=== PATIENT | female | born 1990 | race Caucasian/White ===

== ENCOUNTER → 2017-08-11 12:43 | Outpatient (CLI) | payer SELFPAY ==
[2012-09-07 09:03] VITALS: BMI 31.7
[~2017-08-11 12:43] MED LIST: NORCO 10/325 TA1 TA1 PO
[2017-08-11 13:50] LABS: APPEARANCE HAZY (CLEAR); BILIRUBIN NEGATIVE (NEGATIVE); COLOR RED (YELLOW); GLUCOSE NEGATIVE (NEGATIVE); KETONE NEGATIVE (NEGATIVE); NITRITE NEGATIVE (NEGATIVE); PROTEIN 1+ mg/dL (NEGATIVE); UROBILINOGEN NORMAL (NORMAL)
[2017-08-11 13:52] LABS: BACTERIA MANY /hpf (NONE SEEN); EPITHELIAL CELLS 0-5 /hpf (0-5)
[2017-08-11 13:53] LABS: RED CELLS - URINE >50 /hpf (0-5)
[2017-08-11 15:11] LABS: BASOPHILS 0.2 % (0-2); EOSINOPHILS 1.2 % (0-7); HEMATOCRIT 33.9 % (36.0-48.0); HEMOGLOBIN 11.8 g/dL (12-16); IMMATURE GRANULOCYTES 0.4 % (0-5); LYMPHOCYTES 21.6 % (15-50); MCH 30.3 pg (26.0-34.0); MCHC 34.8 g/dL (31.0-37.0); MCV 87.1 fL (80.0-100.0); MEAN PLATELET VOLUME 9.1 fL (7.4-10.4); MONOCYTES 6.7 % (2-11); NEUTROPHILS 69.9 % (40-80); RBC 3.89 10x6/uL (4.00-5.40); RDW 13.5 % (11.5-14.5); WBC 9.8 10x3/uL (4.8-10.8)
[2017-08-11 15:23] LABS: PLATELET COUNT 241 10x3/uL (130-400)
[2017-08-11 15:26] LABS: APTT 25.8 SECONDS (22.8-39.4); INR 1.01 (0.85-1.17); PROTIME 12.9 SECONDS (11.6-15.0)
[2017-08-11 15:27] LABS: D-DIMER-QUANTITATIVE 0.8 ug/mLFEU (0.20-0.54)
== END | disposition home or self-care (01) ==
LOC: D.LDO 12:43
PROVIDERS: Obstetrics & Gynecology
DX: O26.893 Other specified pregnancy related conditions, third trimester (principal); Z3A.29 29 weeks gestation of pregnancy

== ENCOUNTER 2017-10-09 12:14 | Inpatient (IN) | payer OTHER ==
[~2017-10-09] VITALS: Ht 157.5 cm; Wt 83.0 kg
--- NOTE | ~2017-10-09 | OP ---
PATIENT NAME: BISHOP MENESES [place] MEDICAL RECORD: [id number] :88 LOCATION:[id number] ADMISSION DATE:10/09/17 SURGEON: ZEKE MENDIOLA MD DATE OF OPERATION: 10/09/2017 PREDELIVERY DIAGNOSIS: at term. POSTDELIVERY DIAGNOSIS: Mother delivered at term. PROCEDURE: Vaginal delivery. ATTENDING: Zeke Mendiola MD ANESTHETIC: Continuous lumbar epidural. FINDINGS: Viable female infant, CELIA presentation, Apgars 9 and 9. Weight 6 pounds 13 ounces. First-degree lacerations of the vaginal vault anteriorly and posteriorly with 4-0 chromic and 3-0 chromic repair. Placenta spontaneous and intact. EBL: 350 cc. DISPOSITION: Mother and infant recovered in the room. TRANSINT:[id number] Voice Confirmation ID: [id number] DOCUMENT ID: [id number] ZEKE MENDIOLA MD at 1559 CC: [id number] DICTATION DATE: 10/09/17 171 POLITICAL SCIENCE CHAIR: 10/09/17 1734 ADM IN [facility] [address] [place] [address]
--- NOTE | ~2017-10-09 | DS ---
PATIENT:BISHOP MENESES :88 MEDICAL RECORD: [id number] DISCHARGE SUMMARY ADMISSION DATE: 10/09/17 DISCHARGE DATE: 10/11/17 DATE OF ADMISSION: 10/09/2017 DATE OF DISCHARGE: 10/11/2017 ADMISSION DIAGNOSIS: Active labor at term. DISCHARGE DIAGNOSIS: Mother delivered at term. PROCEDURE: Vaginal delivery. ATTENDING: Fernando Chavez MD HISTORY OF PRESENT ILLNESS: See the H&P in the chart. SUMMARY OF HOSPITALIZATION: The patient was admitted to the hospital in active labor. The patient went on to deliver vaginally. course has been unremarkable. This afternoon, she reports minimal lochia and adequate pain control. The patient will be discharged home and declines pain medications. precautions have been reviewed and she will follow up in 6 weeks at [facility]. TRANSINT:[id number] Voice Confirmation ID: [id number] DOCUMENT ID: [id number] FERNANDO CHAVEZ MD at 1627 CC: [id number] DICTATION DATE: 10/11/17 1600 HULLER OPERATOR: 10/11/17 1614 DIS IN 10/11/17 [facility] [address] [place] [address]
[2017-10-09 13:00] VITALS: BP 110/64; Ht 157.5 cm; Wt 83.0 kg
[2017-10-09 14:31] LABS: HEMATOCRIT 33.3 % (36.0-48.0); HEMOGLOBIN 11.5 g/dL (12-16); MCH 29.1 pg (26.0-34.0); MCHC 34.5 g/dL (31.0-37.0); MCV 84.3 fL (80.0-100.0); MEAN PLATELET VOLUME 10.5 fL (7.4-10.4); RBC 3.95 10x6/uL (4.00-5.40); RDW 13.1 % (11.5-14.5)
[2017-10-09 14:54] LABS: APPEARANCE CLEAR (CLEAR); COLOR DK YELLOW (YELLOW)
[2017-10-09 14:55] LABS: GLUCOSE NEGATIVE (NEGATIVE); KETONE LARGE mg/dL (NEGATIVE); NITRITE NEGATIVE (NEGATIVE); PROTEIN 2+ mg/dL (NEGATIVE)
[2017-10-09 14:56] LABS: BILIRUBIN NEGATIVE (NEGATIVE); UROBILINOGEN NORMAL (NORMAL)
[2017-10-09 14:57] LABS: BACTERIA MANY /hpf (NONE SEEN); EPITHELIAL CELLS 0-5 /hpf (0-5)
[2017-10-09 19:27] VITALS: BP 117/57
[2017-10-10 01:40] VITALS: BP 111/61
[2017-10-10 05:19] LABS: RAPID PLASMA REAGIN Non Reactive (Non Reactive)
[2017-10-10 08:23] VITALS: BP 99/60
[2017-10-10 16:10] VITALS: BP 116/65
[2017-10-10 19:19] VITALS: BP 118/67
[2017-10-11 09:20] VITALS: BP 109/62
== END 2017-10-11 17:05 | disposition home or self-care (01) | DRG 775 ==
LOC: D.LDO 12:14 → D.LD 12:36
PROVIDERS: Obstetrics & Gynecology
PROC: 10E0XZZ Delivery of Products of Conception, External Approach (ICD-10-PCS; principal; 2017-10-09)
PROC: 0HQ9XZZ Repair Perineum Skin, External Approach (ICD-10-PCS; 2017-10-09)
DX: O99.824 Streptococcus B carrier state complicating childbirth (principal); O71.4 Obstetric high vaginal laceration alone; Z3A.38 38 weeks gestation of pregnancy; Z37.0 Single live birth

== ENCOUNTER 2017-12-28 09:37 | Day surgery (SDC) | payer OTHER ==
[2017-12-25 16:31] LABS: BASOPHILS 0.5 % (0-2); EOSINOPHILS 2.4 % (0-7); HEMATOCRIT 37.3 % (36.0-48.0); HEMOGLOBIN 12.7 g/dL (12-16); IMMATURE GRANULOCYTES 0.1 % (0-5); LYMPHOCYTES 35.2 % (15-50); MCH 28.5 pg (26.0-34.0); MCV 83.8 fL (80.0-100.0); MEAN PLATELET VOLUME 9.2 fL (7.4-10.4); MONOCYTES 5.6 % (2-11); NEUTROPHILS 56.2 % (40-80); PLATELET COUNT 283 10x3/uL (130-400); RBC 4.45 10x6/uL (4.00-5.40); RDW 13.5 % (11.5-14.5); WBC 8.8 10x3/uL (4.8-10.8)
[~2017-12-28] VITALS: Ht 157.5 cm; Wt 73.9 kg
--- NOTE | ~2017-12-28 | OP ---
PATIENT NAME: BISHOP MENESES MEDICAL RECORD: [id number] :88 LOCATION:[facility] ADMISSION DATE: SURGEON: FERNANDO CHAVEZ MD DATE OF OPERATION: 12/28/2017 PREOPERATIVE DIAGNOSIS: Unwanted fertility. POSTOPERATIVE DIAGNOSIS: Unwanted fertility. PROCEDURES: Diagnostic laparoscopy with bilateral tubal occlusion using a Falope rings. ATTENDING: Fernando Chavez MD ANESTHESIOLOGIST: Sandeep Kulkarni MD ANESTHETIC: General. FINDINGS: Unremarkable uterus, tubes, and ovaries bilaterally. But what was observed of the abdominal anatomy was also unremarkable. SPECIMENS REMOVED: Not applicable. ESTIMATED BLOOD LOSS: Minimal FLUIDS: 600 cc lactated Ringer's. URINE OUTPUT: Quantity sufficient to void prior to this procedure. COMPLICATIONS: None. DRAINS: None. INDICATIONS: The patient is a 27-year-old multiparous female with unwanted fertility. Risks, benefits as well as alternatives have been described to this procedure. Risk of an ectopic gestation and the possibility of this being a life-threatening condition has been described to the patient as well. DESCRIPTION OF PROCEDURE: After informed consent was assured, the patient was taken to the operating room where anesthetic was obtained. The patient is supine on the table and prepped and draped. An incision was made at the umbilicus to accommodate a 5-mm trocar, which was inserted without difficulty and pneumoperitoneum developed. Accessory ports now placed two fingerbreadths above the symphysis. Through this port, a blunt probe was used to sweep the bowel free of the pelvis. With the patient in steep Trendelenburg position, both tubes were easily identified and followed to their fimbriated ends. Falope ring is now applied to the right tube. This is applied at the isthmic portion. After the Falope ring was applied, good crease in formation and blanching was noted. This was repeated on the contralateral side. Again, good crease and blanching noted. Marcaine was placed directly over both occlusion sites. The accessory trocars were removed as the pneumoperitoneum is being released. The primary trocars were removed after release of the pneumoperitoneum. Subcuticular stitch was applied. Dermabond is placed over the incision. Sponge, lap, and needle counts correct times 2. OPERATIVE REPORT [id number] BISHOP MENESES TRANSINT:[id number] Voice Confirmation ID: [id number] DOCUMENT ID: [id number] FERNANDO CHAVEZ MD at 1243 CC: [id number] DICTATION DATE: 12/28/17 1252 TIE TAPE MACHINE OPERATOR: 12/28/17 1356 [facility] 12/28/17 [place] [id number] [place] [id number]
[2017-12-28 10:33] VITALS: BP 67/55; Ht 157.5 cm; Wt 73.9 kg
[2017-12-28 10:53] LABS: HCG URINE NEGATIVE (NEGATIVE)
== END 2017-12-28 16:04 | disposition home or self-care (01) ==
LOC: D.OPS 09:37 → D.PAN 11:30 → D.OPS 16:04
PROVIDERS: Obstetrics & Gynecology
DX: Z30.2 Encounter for sterilization (principal); Z01.812 Encounter for preprocedural laboratory examination